=== PATIENT | male | born 1950 | race African-American/Black ===

== ENCOUNTER 2023-10-05 22:09 | Emergency (ER) | payer MEDICARE, OTHER ==
[~2023-10-05] VITALS: Ht 170.2 cm; Wt 60.0 kg
[2023-10-05 22:13] VITALS: O2SAT 98
[2023-10-05] MEDS ORDERED: MORPHINE SULFATE 4 MG/ML CPJ (NOT FOR IM USE) IV STA (22:27)
[2023-10-05] MEDS ORDERED: ONDANSETRON HCL 4MG/2ML INJ IV STA (22:27)
[2023-10-05 22:30] VITALS: TEMP 97.9
[2023-10-05] MEDS ORDERED: SODIUM CHLORIDE 0.9% 1,000 ML IV ONE (22:30)
[2023-10-05] MEDS ORDERED: ONDANSETRON HCL 4MG/2ML INJ ONE (23:07)
[2023-10-05] MEDS ORDERED: MORPHINE SULFATE 4 MG/ML CPJ (NOT FOR IM USE) IV ONE (23:08)
[2023-10-05 23:15] LABS: BASOPHILS % 0.6 % (0.0-2.0); EOSINOPHILS % 0.7 % (0.0-5.0); HEMATOCRIT. 35.4 % (42.0-52.0); HEMOGLOBIN. 11.7 g/dL (14.0-18.0); LYMPHOCYTES % 15.9 % (20.0-50.0); MEAN CORPUSCULAR HEMOGLOBIN 26.9 pg (28.0-32.0); MEAN CORPUSCULAR HGB CONC 32.9 g/dL (31.0-37.0); MEAN CORPUSCULAR VOLUME 81.8 fL (80.0-94.0); MEAN PLATELET VOLUME 8.6 fl (7.4-10.4); MONOCYTES % 6.6 % (2.0-8.0); NEUTROPHILS % 76.2 % (40.0-76.0); PLATELET 199 x1000/uL (130-400); RED BLOOD CELL COUNT 4.33 mill/uL (4.7-6.1); RED CELL DISTRIBUTION WIDTH 19.7 % (11.6-14.6)
[2023-10-05 23:29] LABS: CHLORIDE 103 mEq/L (98-107); INDEX HEMOLYSI 6 (1-3); INDEX ICTERIC 1 (1-4); INDEX LIPEMIC 1 (1-3); SODIUM 136 mEq/L (136-145)
[2023-10-05 23:36] LABS: ALBUMIN 3.6 g/dL (3.4-5.0); ASPARTATE AMINOTRANSFERASE 71 IU/L (15-37); BILIRUBIN TOTAL 1.3 mg/dL (0.1-1.0); CALCIUM 9.2 mg/dL (8.5-10.1); CARBON DIOXIDE 29 mEq/L (21-32); CREATININE 2.6 mg/dL (0.6-1.3); ETHANOL BLOOD < 10 mg/dL (<10); GLUCOSE 89 mg/dL (70-105); UREA NITROGEN BLOOD 24 mg/dL (7-21)
[2023-10-05 23:57] LABS: ALANINE AMINOTRANSFERASE 18 IU/L (13-61)
[2023-10-05 23:58] LABS: POTASSIUM 5.6 mEq/L (3.5-5.1)
[2023-10-06 00:20] LABS: AMYLASE 141 IU/L (25-115); INDEX HEMOLYSI 6 (1-3)
[2023-10-06 03:37] LABS: INR 1.1; PROTHROMBIN TIME 11.4 sec (9.6-11.0)
[2023-10-06 03:46] LABS: TROPONIN I HIGH SENSITIVITY 45 ng/L (<78)
[2023-10-06] MEDS ORDERED: ONDANSETRON HCL 4MG/2ML INJ IV ONE (05:15)
[2023-10-06] MEDS ORDERED: PIPERACILLIN/TAZOBACTAM 3.375GM/50ML PREMIX IV NR (05:45)
[2023-10-06 09:26] VITALS: BP 117/79; PULSE 78; RESP 12
== END 2023-10-06 08:08 | disposition short-term general hospital (02) ==
LOC: ER 22:09
DX: K56.609 Unspecified intestinal obstruction, unspecified as to partial versus complete obstruction (principal); K80.20 Calculus of gallbladder without cholecystitis without obstruction; R74.8 Abnormal levels of other serum enzymes; N17.9 Acute kidney failure, unspecified; J44.9 Chronic obstructive pulmonary disease, unspecified; I10 Essential (primary) hypertension
CPT/HCPCS: 80053; 80320; 82150; 83605; 83690; 85025; 36415; 99285; 85610; 86850; 86900; 86901; 87040; 84484; 74176; 76705; 96361; 96365; 96375; 96376; J2405 ×2; J2270; J7030; J2543; G0480

== ENCOUNTER 2024-10-01 22:39 | Inpatient (IN) | payer MEDICARE, OTHER ==
[~2024-10-01] VITALS: Ht 177.8 cm; Wt 73.0 kg
[2024-10-01] MEDS: SODIUM CHLORIDE 0.9% 1,000 ML IV ONE (23:00)
[2024-10-02 01:03] LABS: HEMATOCRIT. 32.3 % (42.0-52.0); HEMOGLOBIN. 10.4 g/dL (14.0-18.0); MEAN CORPUSCULAR HEMOGLOBIN 28.3 pg (28.0-32.0); MEAN CORPUSCULAR HGB CONC 32.3 g/dL (31.0-37.0); MEAN CORPUSCULAR VOLUME 87.6 fL (80.0-94.0); PLATELET 218 x1000/uL (130-400); RED BLOOD CELL COUNT 3.69 mill/uL (4.7-6.1); RED CELL DISTRIBUTION WIDTH 17.8 % (11.6-14.6); WHITE BLOOD COUNT 14.8 x1000/uL (4.5-11.0)
[2024-10-02 01:08] LABS: DIFFERENTIAL COMMENT 1
[2024-10-02 01:17] LABS: CHLORIDE 110 mEq/L (98-107); POTASSIUM 3.8 mEq/L (3.5-5.1); SODIUM 148 mEq/L (136-145)
[2024-10-02 01:18] LABS: CALCIUM 8.7 mg/dL (8.7-10.4); CARBON DIOXIDE 21 mEq/L (21-32)
[2024-10-02 01:23] LABS: GLUCOSE 85 mg/dL (70-105); UREA NITROGEN BLOOD 46 mg/dL (9-23)
[2024-10-02 01:24] LABS: TROPONIN I HIGH SENSITIVITY 32 ng/L (3.0-53)
[2024-10-02 01:25] LABS: ACETAMINOPHEN < 2 ug/mL (10-30)
[2024-10-02] MEDS: CEFTRIAXONE 1GM/50ML 50 ML IV ONE (01:30)
[2024-10-02 01:34] LABS: ETHANOL BLOOD < 10 mg/dL (<10)
[2024-10-02] MEDS ORDERED: DEXTROSE 50% WATER 50ML SYRINGE IV PRN (05:30)
[2024-10-02] MEDS ORDERED: HYDRALAZINE 20MG/ML VIAL IV PRN (05:30)
[2024-10-02] MEDS ORDERED: MAGNESIUM/ALUMINUM HYDROXIDE/SIMETHICONE 30ML UDC PO PRN (05:30)
[2024-10-02] MEDS ORDERED: ONDANSETRON HCL 4MG/2ML INJ IV PRN (05:30)
[2024-10-02] MEDS ORDERED: DEXT 5%/0.45% NACL 1000ML 1,000 ML IV SCH (05:30)
[2024-10-02] MEDS ORDERED: DOCUSATE SODIUM 100MG CAPSULE PO PRN (05:30)
[2024-10-02] MEDS ORDERED: ACETAMINOPHEN 325MG TABLET PO PRN ×2 (05:30)
[2024-10-02] MEDS: DEXT 5%/0.9% NACL 1,000 ML IV SCH (06:00)
[2024-10-02] MEDS: SODIUM CHLORIDE 0.9% 1,000 ML IV ONE (06:15)
[2024-10-02] MEDS: CEFTRIAXONE 1GM/50ML 50 ML IV SCH (07:39)
[2024-10-02] MEDS: ENOXAPARIN 30MG/0.3ML SYR SUBCUT SCH (08:00)
[2024-10-02] MEDS: AZITHROMYCIN 500MG/250ML 250 ML IV SCH (08:00)
[2024-10-02 08:29] LABS: PLATELET ESTIMATE NORMAL
[2024-10-02] MEDS: PANTOPRAZOLE SODIUM 40 MG/VIAL IV SCH (09:00)
[2024-10-02] MEDS: SODIUM CHLORIDE 0.9% 1,000 ML IV STA (11:23)
[2024-10-02] MEDS: DEXT 5%/0.45% NACL 1000ML 1,000 ML IV ONE (11:30)
[2024-10-02 12:30] LABS: CREATINE KINASE 711 IU/L (46-171)
[2024-10-02 12:40] LABS: CLARITY URINE CLEAR (CLEAR); COLOR URINE YELLOW (YELLOW); GLUCOSE URINE NEGATIVE (NEGATIVE); KETONES URINE TRACE (NEGATIVE); LEUKOCYTE ESTERASE URINE TRACE (NEGATIVE); NITRITE URINE NEGATIVE (NEGATIVE); OCCULT BLOOD URINE NEGATIVE (NEGATIVE); PH URINE 5.5 (4.5-8.0); PROTEIN URINE TRACE (NEGATIVE); SPECIFIC GRAVITY URINE 1.015 (1.005-1.030)
[2024-10-02 12:58] LABS: *AMPHETAMINES SCREEN URINE NEGATIVE (NEGATIVE); *BARBITURATES SCREEN URINE NEGATIVE (NEGATIVE); *BENZODIAZEPINES SCREEN URINE NEGATIVE (NEGATIVE); *COCAINE SCREEN URINE NEGATIVE (NEGATIVE); CANNABINOID URINE SCREEN NEGATIVE (NEGATIVE); CREATININE URINE RANDOM 113.2 mg/dL; ECSTASY MDMA SCREEN URINE NEGATIVE (NEGATIVE); METHADONE URINE SCREEN NEGATIVE (NEGATIVE); OPIATES URINE SCREEN NEGATIVE (NEGATIVE); PHENCYCLIDINE URINE SCREEN NEGATIVE (NEGATIVE)
[2024-10-02 13:33] LABS: BACTERIA URINE NONE SEEN; RBC URINE 0-2 /hpf (0-2); SQUAMOUS EPITHELIAL CELL URINE 1+ /lpf (RARE/1+); WBC URINE 0-2 /hpf (0-2); YEAST URINE NONE SEEN
[2024-10-02 20:00] VITALS: BP 142/106; PULSE 69; RESP 16; TEMP 37.11408; O2SAT 96
[2024-10-03] MEDS: VANCOMYCIN 1.5GM PMX (XELLIA) 300 ML IV NR (01:30)
[2024-10-03] MEDS: PIPERACILLIN/TAZO 3.375G/50ML 50 ML IV SCH ×2 (03:37→18:22)
[2024-10-03] MEDS: VANCOMYCIN 1.5GM PMX (XELLIA) 300 ML IV SCH (03:37)
[2024-10-03 05:00] VITALS: BP 100/59; PULSE 73; RESP 18; TEMP 36.114; O2SAT 96
[2024-10-03 06:27] LABS: CHLORIDE 118 mEq/L (98-107); POTASSIUM 3.7 mEq/L (3.5-5.1); SODIUM 151 mEq/L (136-145)
[2024-10-03 06:29] LABS: CARBON DIOXIDE 22 mEq/L (21-32)
[2024-10-03 06:34] LABS: CREATININE 2.7 mg/dL (0.6-1.3)
[2024-10-03 06:35] LABS: GLUCOSE 61 mg/dL (70-105)
[2024-10-03 06:36] LABS: ALANINE AMINOTRANSFERASE 33 IU/L (10-49); ASPARTATE AMINOTRANSFERASE 73 IU/L (<34); UREA NITROGEN BLOOD 43 mg/dL (9-23)
[2024-10-03 06:37] LABS: BILIRUBIN TOTAL 0.3 mg/dL (0.1-1.0); CREATINE KINASE 1082 IU/L (46-171)
[2024-10-03 06:38] LABS: PROTEIN TOTAL 5.6 g/dL (6.0-8.3)
[2024-10-03 06:54] LABS: HEMATOCRIT 29.3 % (42.0-52.0); HEMOGLOBIN 9.3 g/dL (14.0-18.0); MEAN CORPUSCULAR HEMOGLOBIN 27.7 pg (28.0-32.0); MEAN CORPUSCULAR HGB CONC 31.6 g/dL (31.0-37.0); MEAN CORPUSCULAR VOLUME 87.8 fL (80.0-94.0); PLATELET 187 x1000/uL (130-400); RED BLOOD CELL COUNT 3.34 mill/uL (4.7-6.1); RED CELL DISTRIBUTION WIDTH 17.9 % (11.6-14.6); WHITE BLOOD COUNT 11.2 x1000/uL (4.5-11.0)
[2024-10-03 08:00] VITALS: BP 102/54; PULSE 83; RESP 18; TEMP 36.16956; O2SAT 97
[2024-10-03 12:00] VITALS: BP_SYST 102; BP_SYST 108; BP_DIAS 54; BP_DIAS 61; PULSE 78; PULSE 83; RESP 18; TEMP 35.8362; TEMP 36.16956; O2SAT 97; O2SAT 98
[2024-10-03 16:00] VITALS: BP 104/60; PULSE 77; RESP 18; RESP 20; TEMP 36.16956; TEMP 37.11408; O2SAT 94; O2SAT 99
[2024-10-03 17:50] VITALS: BP 104/60; PULSE 77; RESP 20; TEMP 36.5292
[2024-10-03 19:11] VITALS: BP 104/60; PULSE 87; TEMP 98.1; O2SAT 98
== END 2024-10-03 20:01 | DRG 871 ==
LOC: ER 22:39 → 5WST 10-02 02:46 → 8WST 10-03 04:13
PROVIDERS: ADMIT Internal Medicine; ATTEND Internal Medicine
DX: A41.9 Sepsis, unspecified organism (principal); E43 Unspecified severe protein-calorie malnutrition; G92.8 Other toxic encephalopathy; I21.4 Non-ST elevation (NSTEMI) myocardial infarction; J96.01 Acute respiratory failure with hypoxia; N17.0 Acute kidney failure with tubular necrosis; M62.82 Rhabdomyolysis; I67.82 Cerebral ischemia; T74.01XA Adult neglect or abandonment, confirmed, initial encounter; E87.20 Acidosis, unspecified; N39.0 Urinary tract infection, site not specified; F03.90 Unspecified dementia, unspecified severity, without behavioral disturbance, psychotic disturbance, mood disturbance, and anxiety; N18.9 Chronic kidney disease, unspecified; E86.0 Dehydration; J44.9 Chronic obstructive pulmonary disease, unspecified; K21.9 Gastro-esophageal reflux disease without esophagitis; R65.20 Severe sepsis without septic shock; D50.9 Iron deficiency anemia, unspecified; I12.9 Hypertensive chronic kidney disease with stage 1 through stage 4 chronic kidney disease, or unspecified chronic kidney disease; Z68.23 Body mass index [BMI] 23.0-23.9, adult; Z79.899 Other long term (current) drug therapy; W01.0XXA Fall on same level from slipping, tripping and stumbling without subsequent striking against object, initial encounter; Y93.89 Activity, other specified; Y92.002 Bathroom of unspecified non-institutional (private) residence as the place of occurrence of the external cause; Y99.8 Other external cause status
CPT/HCPCS: 36415; 71045; 71250; 72170; 74176; 80048; 80053; 80305; 80307; 80320; 80329; 81003; 82550; 82570; 83605; 83735; 83935; 84100; 84145; 84300; 84484; 85025; 85027; 87070; 92610; 93005; 97166; 99291; J0456; J0696; J1650; J2470; J2543; J3370; J7030; G0480

== ENCOUNTER 2024-11-22 13:22 | Emergency (ER) | payer MEDICARE, OTHER ==
[~2024-11-22] VITALS: Ht 172.7 cm; Wt 64.0 kg
[2024-11-22 13:26] VITALS: O2SAT 96
[2024-11-22 13:59] LABS: CHLORIDE 114 mEq/L (98-107); POTASSIUM 4.9 mEq/L (3.5-5.1); SODIUM 148 mEq/L (136-145)
[2024-11-22 14:00] LABS: CALCIUM 9.2 mg/dL (8.7-10.4); CARBON DIOXIDE 28 mEq/L (21-32)
[2024-11-22 14:04] LABS: PARTIAL THROMBOPLASTIN TIME 30.5 sec (23.4-31.0); PROTHROMBIN TIME 10.9 sec (9.6-11.0)
[2024-11-22 14:05] LABS: GLUCOSE 94 mg/dL (70-105); UREA NITROGEN BLOOD 22 mg/dL (9-23)
[2024-11-22 14:06] LABS: TROPONIN I HIGH SENSITIVITY 5 ng/L (3.0-53)
[2024-11-22 14:07] LABS: CREATINE KINASE 87 IU/L (46-171)
[2024-11-22 14:27] LABS: BASOPHILS % 1.4 % (0.0-2.0); EOSINOPHILS % 0.8 % (0.0-5.0); HEMATOCRIT. 26.3 % (42.0-52.0); HEMOGLOBIN. 8.3 g/dL (14.0-18.0); LYMPHOCYTES % 21.2 % (20.0-50.0); MEAN CORPUSCULAR HEMOGLOBIN 25.2 pg (28.0-32.0); MEAN CORPUSCULAR HGB CONC 31.4 g/dL (31.0-37.0); MONOCYTES % 7.1 % (2.0-8.0); NEUTROPHILS % 69.5 % (40.0-76.0); PLATELET 341 x1000/uL (130-400); RED BLOOD CELL COUNT 3.28 mill/uL (4.7-6.1); RED CELL DISTRIBUTION WIDTH 19.3 % (11.6-14.6); WHITE BLOOD COUNT 4.4 x1000/uL (4.5-11.0)
[2024-11-22 14:35] LABS: CREATININE 1.4 mg/dL (0.6-1.3)
[2024-11-22] MEDS ORDERED: LIDOCAINE 5% PATCH TOP ONE (14:45)
[2024-11-22 17:41] LABS: IRON 23 ug/dL (65-175); TRIGLYCERIDE 60 mg/dL (0-150)
[2024-11-22 17:42] LABS: LDL CHOLESTEROL 56 mg/dL (5-100)
[2024-11-22 17:43] LABS: CHOLESTEROL 148 mg/dL (<200); HDL CHOLESTEROL 65 mg/dL (>55)
[2024-11-22 17:44] LABS: TOTAL IRON BINDING CAPACITY 317 ug/dl (250-425)
[2024-11-22 17:48] LABS: T4 FREE 1.32 ng/dL (0.89-1.76); THYROID STIMULATING HORMONE 1.11 uIU/mL (0.55-4.78); VITAMIN B12 SERUM 629 pg/mL (211-911)
[2024-11-22 18:02] LABS: FOLIC ACID (FOLATE) SERUM > 20.00 ng/mL (>5.38)
[2024-11-22 18:25] VITALS: BP 137/89; PULSE 93; RESP 22; TEMP 36.44736; O2SAT 99
[2024-11-28] MEDS ORDERED: ATOR40TA70 PO (01:54)
== END 2024-11-22 19:16 | disposition short-term general hospital (02) ==
LOC: ER 13:34 → EDBEDREQ 13:35 → CANBEDREQ 17:03 → ER 19:16
DX: S22.42XA Multiple fractures of ribs, left side, initial encounter for closed fracture (principal); R53.1 Weakness; J44.89 Other specified chronic obstructive pulmonary disease; E78.5 Hyperlipidemia, unspecified; R62.7 Adult failure to thrive; N40.0 Benign prostatic hyperplasia without lower urinary tract symptoms; I10 Essential (primary) hypertension; W19.XXXA Unspecified fall, initial encounter; Y93.89 Activity, other specified; Y92.89 Other specified places as the place of occurrence of the external cause; Y99.8 Other external cause status
CPT/HCPCS: 36415; 71045; 71250; 72170; 80048; 80061; 82550; 82607; 82746; 83036; 83540; 83550; 83735; 83880; 84439; 84443; 84484; 85025; 93005; 99285